=== PATIENT | female | born 1985 | race African-American/Black ===

== ENCOUNTER 2023-05-11 19:47 | Inpatient (IN) | payer MEDICAID ==
[~2023-05-11] VITALS: Ht 162.6 cm; Wt 78.9 kg
[2023-05-11] MEDS ORDERED: WITCH HAZEL-GLYCERIN PAD TOP PRN (20:30)
[2023-05-11] MEDS ORDERED: PROMETHAZINE HCL 25 MG/ML 1ML IV PRN (20:30)
[2023-05-11] MEDS ORDERED: DERMOPLAST 60ML BOTTLE TOP PRN (20:30)
[2023-05-11] MEDS ORDERED: LACT. RINGERS/OXYTOCIN 20UNITS 500 ML IV ONE ×2 (20:30→21:00)
[2023-05-11] MEDS ORDERED: LIDOCAINE 2%HCL (LOCAL ANESTH.) INJ 20ML MDV IJ PRN (20:30)
[2023-05-11] MEDS ORDERED: LACTATED RINGER'S 1,000 ML IV SCH (20:30)
[2023-05-11] MEDS ORDERED: PHISODERM TOP SOLN 240ML BTL TOP PRN (20:30)
[2023-05-11 20:57] LABS: Fern Testing Positive
[2023-05-11 21:07] LABS: Urine Bacteria FEW /hpf (None Seen); Urine Blood 3+ /uL (Negative); Urine Clarity CLOUDY (Clear); Urine Color Yellow (Yellow); Urine Mucus FEW (None Seen); Urine Protein, UAD 2+ (Negative); Urine Specific Gravity 1.012 (1.001-1.035); Urine Urobilinogen Normal (Negative); Urine WBC 57 /hpf (0 - 5); Urine pH 6.5 (5.0-8.0)
[2023-05-11] MEDS ORDERED: ONDANSETRON HCL 4 MG/2 ML VIAL IV PRN (21:15)
[2023-05-11] MEDS ORDERED: fentaNYL CITRATE 100 MCG/2 ML VL IV PRN (21:15)
[2023-05-11] MEDS ORDERED: PROMETHAZINE HCL 25 MG/ML 1ML IM PRN (21:15)
[2023-05-11] MEDS ORDERED: TRANEXAMIC ACID 1,000 MG in SODIUM CHL 0.9% 100 ML IV PRN (21:15)
[2023-05-11] MEDS ORDERED: METHYLERGONOVINE MALEATE 0.2 MG/ML AMP IM PRN (21:15)
[2023-05-11] MEDS ORDERED: ACETAMINOPHEN 325 MG TAB PO PRN (21:15)
[2023-05-11] MEDS ORDERED: MINERAL OIL TOPICAL 10ml TOP PRN (21:15)
[2023-05-11] MEDS ORDERED: CARBOPROST TROMETHAMINE 250 MCG/1ML VIAL IM PRN (21:15)
[2023-05-11] MEDS ORDERED: diphenhdrAMINE HCL 50 MG/1 ML VL IV PRN (21:15)
[2023-05-11] MEDS ORDERED: miSOPROStol 100 mcg TAB SL PRN (21:15)
[2023-05-11 21:20] LABS: Amphetamine Screen, Urine Neg (NEGATIVE); Barbiturate Scree,Urine Neg (NEGATIVE); Benzodiazephine Screen, Urine Neg (NEGATIVE); Cocaine Screen, Urine Neg (NEGATIVE); Opiate Scree,Urine Neg (NEGATIVE)
[2023-05-11 21:21] LABS: Cannabinoid Screen, Urine Pos (NEGATIVE); Phencyclidine Screen, Urine Neg (NEGATIVE)
[2023-05-11 21:27] LABS: Basophils # (auto) 0.1 10 ^3/uL (0-0.2); Basophils % (auto) 0.8 % (0.0-2.0); Eosinophils # (auto) 0 10 ^3/uL (0-0.8); Eosinophils % (auto) 0.3 % (0.0-7.0); Hematocrit 37.2 % (36.0-46.0); Hemoglobin 12.7 g/dL (12.2-16.2); Lymphocytes # (auto) 2.3 10 ^3/uL (0.4-5.4); Lymphocytes % (auto) 24.1 % (10.0-50.0); Mean Corpuscular Hemoglobin 33.4 pg (28.0-32.0); Mean Corpuscular Hgb Conc. 34.1 g/dL (32.0-36.0); Mean Corpuscular Volume 98.2 fL (80.0-100.0); Monocytes # (auto) 0.6 10 ^3/uL (0-1.3); Monocytes % (auto) 5.8 % (0.0-12.0); Neutrophils # (auto) 6.7 10 ^3/uL (1.6-8.6); Nucleated Red Blood Cells % 0.1 %; Red Blood Cells 3.79 10^6/uL (4.0-5.20); Red Cell Distribution Width 17.7 % (11.8-14.3); White Blood Cell 9.7 10^3/uL (4.4-10.8)
[2023-05-11 22:03] LABS: Alanine Aminotransferase 21 U/L (7-40); Albumin 4.3 g/dL (3.2-4.8); Alkaline Phosphatase 102 U/L (46-116); Anion Gap 10 (5-15); Aspartate Aminotransferase 11 U/L (13-40); BUN/Creatinine Ratio 17.1 (10.0-20.0); Bilirubin, Total 0.6 mg/dL (0.2-1.0); Blood Urea Nitrogen 13 mg/dL (9-23); Carbon Dioxide 20 mmol/L (20-30); Chloride 106 mmol/L (98-107); Glucose 130 mg/dL (74-106); Potassium 3.8 mmol/L (3.5-5.1); Sodium 136 mmol/L (136-145)
[2023-05-11 22:04] LABS: Total Protein 6.8 g/dL (5.7-8.2)
[2023-05-11 22:20] LABS: INR 0.93 (0.9-1.15); Partial Thromboplastin Time 26.7 SEC (24.5-34.5); Prothrombin Time 9.8 sec (9.3-11.8)
[2023-05-12] MEDS ORDERED: DIPHENOXYLATE W/ATROPINE 2.5 MG TAB PO SCH
[2023-05-12] MEDS ORDERED: LACT. RINGERS/OXYTOCIN 20UNITS 500 ML IV ONE ×2 (01:30→02:00)
[2023-05-12] MEDS ORDERED: TERBUTALINE SULFATE 1 MG/ML 1ML VIAL SC PRN (01:30)
[2023-05-12] MEDS ORDERED: LACT. RINGERS/OXYTOCIN 20UNITS 1,000 ML IV SCH (01:30)
[2023-05-12] MEDS ORDERED: diphenhdrAMINE HCL 50 MG/1 ML VL IV ONE (02:30)
[2023-05-12] MEDS ORDERED: IBUPROFEN 600 MG TAB PO PRN (04:45)
[2023-05-12] MEDS ORDERED: ACETAMINOPHEN 325 MG TAB PO PRN (04:45)
[2023-05-12 07:05] VITALS: BP 109/59; PULSE 64; RESP 16; TEMP 98.2
[2023-05-12 11:10] VITALS: BP 114/68; PULSE 71; RESP 16; TEMP 99.3
[2023-05-12 15:20] VITALS: BP 117/79; PULSE 72; RESP 16; TEMP 99
[2023-05-12 19:00] VITALS: BP 127/71; PULSE 80; RESP 16; TEMP 99
[2023-05-12 21:20] VITALS: BP 127/71; PULSE 80; RESP 16; TEMP 99
[2023-05-12] MEDS ORDERED: DOCUSATE SOD 100 MG CAP PO SCH (22:00)
[2023-05-12] MEDS ORDERED: DOCU-265 PO (22:50)
[2023-05-12] MEDS ORDERED: PREN-169 PO (22:50)
[2023-05-12] MEDS ORDERED: IBU600T PO (22:50)
[2023-05-12 23:00] VITALS: BP 112/68; PULSE 83; RESP 18; TEMP 98.9
[2023-05-12] MEDS ORDERED: CEPH250C PO (23:01)
[2023-05-13 03:00] VITALS: BP 124/77; PULSE 74; RESP 18; TEMP 98.7
[2023-05-13 05:00] LABS: Basophils # (auto) 0.1 10 ^3/uL (0-0.2); Basophils % (auto) 0.5 % (0.0-2.0); Eosinophils # (auto) 0.1 10 ^3/uL (0-0.8); Eosinophils % (auto) 0.5 % (0.0-7.0); Hematocrit 36.5 % (36.0-46.0); Hemoglobin 12.3 g/dL (12.2-16.2); Lymphocytes # (auto) 2.8 10 ^3/uL (0.4-5.4); Lymphocytes % (auto) 26.3 % (10.0-50.0); Mean Corpuscular Hemoglobin 33.1 pg (28.0-32.0); Mean Corpuscular Hgb Conc. 33.5 g/dL (32.0-36.0); Mean Corpuscular Volume 98.7 fL (80.0-100.0); Monocytes # (auto) 0.7 10 ^3/uL (0-1.3); Monocytes % (auto) 6.2 % (0.0-12.0); Neutrophils # (auto) 7.1 10 ^3/uL (1.6-8.6); Neutrophils % (auto) 66.5 % (37.0-80.0); Nucleated Red Blood Cells % 0.2 %; Red Cell Distribution Width 17.5 % (11.8-14.3); White Blood Cell 10.7 10^3/uL (4.4-10.8)
[2023-05-13 05:07] LABS: RPR Non Reactive (Non Reactive)
[2023-05-13 06:06] LABS: Rubella Antibodies, IgG 1.36 index (Immune >0.99)
[2023-05-13 07:00] VITALS: BP 106/66; PULSE 77; RESP 16; TEMP 98.7; O2SAT 97
[2023-05-13 11:00] VITALS: BP 135/80; PULSE 87; RESP 17; TEMP 98.9; O2SAT 98
[2023-05-13 13:36] VITALS: TEMP 98.7
== END 2023-05-13 13:30 | disposition home or self-care (01) | DRG 560 ==
LOC: LDRP 19:47 → OBSVTOIN 20:12 → LDRP 20:27
PROVIDERS: ADMIT Obstetrics & Gynecology; ATTEND Obstetrics & Gynecology
PROC: 10E0XZZ Delivery of Products of Conception, External Approach (ICD-10-PCS; principal; 2023-05-12)
PROC: 0UQMXZZ Repair Vulva, External Approach (ICD-10-PCS; 2023-05-12)
DX: O48.0 Post-term pregnancy (principal); Z37.0 Single live birth; O69.81X0 Labor and delivery complicated by cord around neck, without compression, not applicable or unspecified; O70.0 First degree perineal laceration during delivery; Z3A.40 40 weeks gestation of pregnancy
CPT/HCPCS: 36415; 59025; 76805; 80053; 80307; 81001; 81002; 83036; 84112; 85025; 85610; 85730; 86592; 86703; 86762; 86850; 86900; 86901; 87340; 94760; 94762; 96360; 96361; G0378; J2590